=== PATIENT | female | born 1970 | race Caucasian/White ===

== ENCOUNTER → 2016-10-31 | Outpatient (CLI) | payer OTHER ==
[~2016-10-31] MED LIST: BUPIVACAINE 0.25% 30 ML SDV ONE; NA BICARBONATE 50 MEQ/50 ML VIAL ONE
--- NOTE | 2016-10-31 12:02 | US ---
Ultrasound-guided Left Hamstring Tendon Ejection With Platelet-rich Plasma, October 31, 2016 HISTORY: Patient is well known to me and has undergone prior multiple left hamstring tendon origin CO P injections. There was significant improvement with the last injection, and the patient requests rep eat injection. TECHNIQUE: Informed consent was obtained. A timeout was performed. 4 mL of PRP was manufactured in st andard technique. Using standard sterile technique, lidocaine local anesthesia, and direct ultrasound guidance, I darrel christa a 25-gauge needle into the left hamstring tendon origin at the ischial tuberosity. At this locati on, 4 mL of PRP was injected without complication. IMPRESSION: Successful ultrasound-guided injection of left hamstring tendon origin with platelet-rich plasma.
== END ==
LOC: FIMAGING 07:54
PROVIDERS: ATTEND Radiology Diagnostic Radiology
PROC: 3E023GC Introduction of Other Therapeutic Substance into Muscle, Percutaneous Approach (ICD-10-PCS; principal; 2016-10-31)
DX: M76.892 Other specified enthesopathies of left lower limb, excluding foot (principal)

== ENCOUNTER → 2017-03-03 | Outpatient (CLI) | payer BC | LOC: FIMAGING 15:08 | PROVIDERS: ATTEND Obstetrics & Gynecology | DX: Z12.31 Encounter for screening mammogram for malignant neoplasm of breast (principal) | CPT/HCPCS: G0202 ==

== ENCOUNTER → 2018-03-04 | Outpatient (CLI) | payer BC | LOC: FIMAGING 15:25 | PROVIDERS: ATTEND Obstetrics & Gynecology | DX: Z12.31 Encounter for screening mammogram for malignant neoplasm of breast (principal) ==

== ENCOUNTER → 2018-07-25 | Outpatient (CLI) | payer BC | LOC: BMCIMAGING 12:02 | PROVIDERS: ATTEND Family Medicine | DX: R07.89 Other chest pain (principal); M79.644 Pain in right finger(s) ==